=== PATIENT | female | born 1965 | race Caucasian/White ===

== ENCOUNTER 2017-01-10 07:14 | Emergency (ER) | payer BC, OTHER ==
[~2017-01-10] VITALS: Ht 167.6 cm; Wt 101.6 kg
[2017-01-10 07:17] VITALS: TEMP 37.1; Ht 167.6 cm; Wt 101.6 kg
[2017-01-10] MEDS ORDERED: LIDOCAINE HCL 1% 20 ML VIAL ONE (07:25)
--- NOTE | 2017-01-10 07:56 | EMERGENCY ROOM VISIT NOTE ---
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 had pressure dsg on History of Present Illness The patient is a 51 year old female who presents to the Emergency Room with complaints of a laceration to her left hand this morning. The patient was using a drapery cutter to cut fabric when her hand slipped and cut her left hand. The patient denies any significant bleeding, loss of function, paresthesias or numbness of the hand or fingers. Tetanus immunization is up-to- date. The patient rates her discomfort a 5 out of 10. Review of Systems 6 system review was performed and was negative except for pertinent positives and negatives as indicated in history of present illness Past Medical/Surgical History Medical Problems: (1) No significant past medical history Surgical Problems: (1) History of repair of rotator cuff Family History FH: heart disease Social History Smoking Status: Former Smoker Alcohol Use: occasionally Marital Status: Housing Status: lives with family Occupation Status: employed Physical Exam Vital Signs Date Time Temp Pulse Resp B/P (MAP) Pulse Ox O2 Delivery O2 Flow Rate FiO2 01/10/17 07:17 37.1 98 19 129/79 97 Room Air Physical Exam CONSTITUTIONAL: Healthy and well nourished. Alert and oriented X 3 with positive affect. HEENT: Normocephalic, atraumatic. Pupils equal, round and reactive. MUSCULOSKELETAL: Examination of the left hand shows a 3 cm laceration on the radial aspect of the dorsal hand. No active bleeding noted. The patient has full extensor strength of the thumb. Capillary refill is less than 2 seconds. INTEGUMENTARY: No rash or other significant dermatologic conditions noted. NEUROLOGIC: Left hand and thumb are sensory intact. Medical Decision & Procedures Medications Administered Medications (Trade) Dose Ordered Sig/Sumeet Route Start Time Stop Time Status Last Admin Dose Admin Lidocaine HCl (Xylocaine 1% Inj (Local)) 20 ml STK-MED ONCE .ROUTE 01/10/17 07:25 01/10/17 07:26 DC 01/10/17 07:25 20 ML Procedure Laceration repair and wound exploration was performed under local anesthesia after receiving verbal consent from the patient. Using buffered 1% lidocaine without epinephrine, good local anesthesia was administered. The peripheral tissue was enclosed with iodine, then copiously pressure irrigated with 100 mL of normal saline. Exploration of the wound does not show any INVOLVEMENT of the underlying tendons, vasculature, nerve or bone. The wound was then approximated using 5-0 nylon simple interrupted sutures. A bacitracin dressing was applied. ED Course Patient history and physical exam were performed. Nurse's notes were reviewed. Vital signs were reviewed and were normal. Laceration repair was performed under local anesthesia. The patient was provided additional verbal and written wound care instructions. Ice and elevation for swelling. Ibuprofen or Tylenol as needed for pain. Suture removal in 12-14 days, or seek reevaluation sooner for any signs of wound infection. The patient was happy with plan of care, voiced understanding of all discharge instructions, and denied any pain at the time of discharge. Medical Decision Impression Primary Impression: Laceration of left hand Departure Information Dispostion Home / Self-Care Forms HOME CARE DOCUMENTATION FORM, IMPORTANT VISIT INFORMATION Patient Instructions [facility] Additional Instructions Keep wound clean and dry. Do not allow any crusting or dried blood to accumulate on sutures. If this occurs, use a 1:1 solution of hydrogen peroxide/ water on a Q-tip to clean the wound. Use an antibiotic ointment for 3-4 days, then let wound dry. Suture removal in 12-14 days. Return sooner for any signs of infection (increasing redness, swelling, drainage). Ice and elevate for swelling and pain. Ibuprofen 600 mg and/or Tylenol 1000 mg every 6 hrs if needed for pain. Problem Qualifiers Primary Impression: Laceration of left hand Encounter type: initial encounter Foreign body presence: without foreign body Qualified Codes: S61.412A - Laceration without foreign body of left hand , initial encounter
[2017-01-10 08:12] VITALS: BP 112/63; PULSE 86; O2SAT 94
== END 2017-01-10 08:15 | disposition home or self-care (01) ==
LOC: C.EDB 07:16 → C.EDA 08:15
DX: S61.412A Laceration without foreign body of left hand, initial encounter (principal); W45.8XXA Other foreign body or object entering through skin, initial encounter; Z87.891 Personal history of nicotine dependence; Z82.49 Family history of ischemic heart disease and other diseases of the circulatory system